=== PATIENT | female | born 1970 | race Two or more races ===

== ENCOUNTER 2019-07-10 09:25 | Day surgery (SDC) | payer OTHER | END 2019-07-10 14:05 | disposition home or self-care (01) | LOC: AMB-ENDOS 09:25 → ADM 15:00 → AMB-ENDOS 15:00 | DX: K62.89 Other specified diseases of anus and rectum (principal); N80.5 Endometriosis of intestine ==

== ENCOUNTER 2019-10-30 11:00 | Inpatient (IN) | payer OTHER ==
[~2019-10-30] VITALS: Ht 162.6 cm; Wt 68.0 kg
[2019-10-30] MEDS ORDERED: AYGESTIN5 MG PO (14:50)
[2019-11-08] MEDS ORDERED: INTESTINEX680 M1 PO (12:03)
[2019-11-08] MEDS ORDERED: ULTRAM50 MG PO (12:03)
[2019-11-08] MEDS ORDERED: LEVSIN/SL0.125 MG PO (12:04)
== END 2019-11-08 13:53 | disposition home or self-care (01) | DRG 742 ==
LOC: SURG 11-05 05:40 → O/R 11-05 05:40 → SURH 11-05 07:00 → O/R 11-05 11:00 → SURH 11-05 11:00 → SURG 11-05 11:21 → SURH 11-07 17:23
PROVIDERS: Obstetrics & Gynecology Gynecology; ADMIT Surgery; ATTEND Surgery
PROC: 0DNW4ZZ Release Peritoneum, Percutaneous Endoscopic Approach (ICD-10-PCS; 2019-11-05)
PROC: 0UB04ZZ Excision of Right Ovary, Percutaneous Endoscopic Approach (ICD-10-PCS; 2019-11-05)
PROC: 0DBN4ZZ Excision of Sigmoid Colon, Percutaneous Endoscopic Approach (ICD-10-PCS; 2019-11-05)
PROC: 0DTP4ZZ Resection of Rectum, Percutaneous Endoscopic Approach (ICD-10-PCS; 2019-11-05)
PROC: 0DJD8ZZ Inspection of Lower Intestinal Tract, Via Natural or Artificial Opening Endoscopic (ICD-10-PCS; 2019-11-05)
PROC: 0UT94ZZ Resection of Uterus, Percutaneous Endoscopic Approach (ICD-10-PCS; principal; 2019-11-05 07:00)
PROC: 0UB74ZZ Excision of Bilateral Fallopian Tubes, Percutaneous Endoscopic Approach (ICD-10-PCS; 2019-11-05 07:00)
DX: N80.0 Endometriosis of uterus (principal); K56.51 Intestinal adhesions [bands], with partial obstruction; D25.1 Intramural leiomyoma of uterus; D25.0 Submucous leiomyoma of uterus; D25.2 Subserosal leiomyoma of uterus; N80.2 Endometriosis of fallopian tube; N83.8 Other noninflammatory disorders of ovary, fallopian tube and broad ligament; N80.5 Endometriosis of intestine

== ENCOUNTER 2019-11-23 12:02 | Inpatient (IN) | payer OTHER ==
[~2019-11-23] VITALS: Ht 162.6 cm; Wt 67.1 kg
[~2019-11-23 12:02] MED LIST: AYGESTIN5 MG PO; INTESTINEX680 M1 PO; LEVSIN/SL0.125 MG PO; ULTRAM50 MG PO
[2019-11-23] MEDS ORDERED: PROTONIX40 M1 (12:13)
[2019-12-01] MEDS ORDERED: PROTONIX40 MG PO (12:35)
[2019-12-01] MEDS ORDERED: INTESTINEX680 M1 PO (12:35)
[2019-12-01] MEDS ORDERED: VANCOMYCIN HCL125 MG PO (12:37)
== END 2019-12-01 13:38 | disposition home or self-care (01) | DRG 386 ==
LOC: ER 12:02 → SURH 19:44
PROVIDERS: ADMIT Surgery; ATTEND Surgery
PROC: BW21Y0Z Computerized Tomography (CT Scan) of Abdomen and Pelvis using Other Contrast, Unenhanced and Enhanced (ICD-10-PCS; principal; 2019-11-23)
PROC: 02HV33Z Insertion of Infusion Device into Superior Vena Cava, Percutaneous Approach (ICD-10-PCS; 2019-11-24)
PROC: 3E0436Z Introduction of Nutritional Substance into Central Vein, Percutaneous Approach (ICD-10-PCS; 2019-11-24)
PROC: 8E0ZXY6 Isolation (ICD-10-PCS; 2019-11-24)
DX: K51.00 Ulcerative (chronic) pancolitis without complications (principal); N39.0 Urinary tract infection, site not specified; A09 Infectious gastroenteritis and colitis, unspecified; K29.00 Acute gastritis without bleeding; E86.0 Dehydration; E87.8 Other disorders of electrolyte and fluid balance, not elsewhere classified; R31.0 Gross hematuria; Z03.818 Encounter for observation for suspected exposure to other biological agents ruled out

== ENCOUNTER 2020-12-09 06:30 | Day surgery (SDC) | payer OTHER ==
[~2020-12-09 06:30] MED LIST changes: +PROTONIX40 M1; +PROTONIX40 MG PO; +VANCOMYCIN HCL125 MG PO
== END 2020-12-09 10:20 | disposition home or self-care (01) ==
LOC: CIR.AMB 06:30 → AMB-ENDOS 06:30 → CIR.AMB 10:20
PROVIDERS: ATTEND Surgery
DX: K62.89 Other specified diseases of anus and rectum (principal); K64.4 Residual hemorrhoidal skin tags; Z20.822 Contact with and (suspected) exposure to COVID-19